=== PATIENT | female | born 1945 | race Caucasian/White ===

== ENCOUNTER 2023-12-30 11:51 | Outpatient (RCR) | payer MEDICARE, OTHER, SELFPAY | END 2023-12-30 23:59 | disposition home or self-care (01) | LOC: RPT 11:51 | PROVIDERS: ATTENDING PHYSICIAN Orthopaedic Surgery; FAMILY PHYSICIAN Internal Medicine | DX: S92.334D Nondisplaced fracture of third metatarsal bone, right foot, subsequent encounter for fracture with routine healing (principal); M25.571 Pain in right ankle and joints of right foot; I89.0 Lymphedema, not elsewhere classified; Z73.6 Limitation of activities due to disability | CPT/HCPCS: 97140; 97162; 97535 ==

== ENCOUNTER 2024-01-20 14:26 | Outpatient (RCR) | payer MEDICARE, OTHER, SELFPAY | END 2024-01-21 05:50 | disposition home or self-care (01) | LOC: RPT 14:26 | PROVIDERS: ATTENDING PHYSICIAN Orthopaedic Surgery; FAMILY PHYSICIAN Internal Medicine | DX: S92.334D Nondisplaced fracture of third metatarsal bone, right foot, subsequent encounter for fracture with routine healing (principal); M25.571 Pain in right ankle and joints of right foot; I89.0 Lymphedema, not elsewhere classified; Z73.6 Limitation of activities due to disability | CPT/HCPCS: 97535 ==